=== PATIENT | female | born 2000 | race Caucasian/White ===

== ENCOUNTER 2024-12-01 22:42 | Inpatient (IN) | payer SELFPAY ==
[~2024-12-01] VITALS: Ht 162.6 cm; Wt 57.6 kg
[2024-12-01 22:44] VITALS: O2SAT 99
[2024-12-01 23:42] LABS: BASOPHILS % 0.5 % (0.0-2.0); EOSINOPHILS % 1.6 % (0.0-5.0); HEMATOCRIT. 34.4 % (36.0-48.0); HEMOGLOBIN. 11.5 g/dL (12.0-16.0); LYMPHOCYTES % 29.2 % (20.0-50.0); MEAN PLATELET VOLUME 9.3 fl (7.4-10.4); MONOCYTES % 5.5 % (2.0-8.0); NEUTROPHILS % 63.2 % (40.0-76.0); PLATELET 188 x1000/uL (130-400); RED BLOOD CELL COUNT 3.87 mill/uL (4.2-5.4); RED CELL DISTRIBUTION WIDTH 13.5 % (11.6-14.6)
[2024-12-01 23:56] LABS: CREATININE 0.8 mg/dL (0.6-1.0)
[2024-12-01 23:57] LABS: ETHANOL BLOOD < 10 mg/dL (<10); TROPONIN I HIGH SENSITIVITY < 4 ng/L (3.0-34); UREA NITROGEN BLOOD 14 mg/dL (9-23)
[2024-12-02 00:01] LABS: HCG SCREEN NEGATIVE
[2024-12-02] MEDS: LEVETIRACETAM 1000MG PREMIX 100 ML IV ONE (01:10)
[2024-12-02 01:18] LABS: *AMPHETAMINES SCREEN URINE NEGATIVE (NEGATIVE); *BARBITURATES SCREEN URINE NEGATIVE (NEGATIVE); *BENZODIAZEPINES SCREEN URINE NEGATIVE (NEGATIVE); *COCAINE SCREEN URINE NEGATIVE (NEGATIVE); CANNABINOID URINE SCREEN NEGATIVE (NEGATIVE); ECSTASY MDMA SCREEN URINE NEGATIVE (NEGATIVE); METHADONE URINE SCREEN NEGATIVE (NEGATIVE); OPIATES URINE SCREEN NEGATIVE (NEGATIVE); PHENCYCLIDINE URINE SCREEN NEGATIVE (NEGATIVE)
[2024-12-02 04:00] VITALS: BP 107/68; PULSE 67; RESP 16; TEMP 36.5848
[2024-12-02 04:22] LABS: CLARITY URINE CLEAR (CLEAR); COLOR URINE YELLOW (YELLOW); PH URINE 5.5 (4.5-8.0); SPECIFIC GRAVITY URINE 1.026 (1.005-1.030)
[2024-12-02 04:23] LABS: GLUCOSE URINE NEGATIVE (NEGATIVE); KETONES URINE TRACE (NEGATIVE); LEUKOCYTE ESTERASE URINE NEGATIVE (NEGATIVE); NITRITE URINE NEGATIVE (NEGATIVE); OCCULT BLOOD URINE 1+ (NEGATIVE); PROTEIN URINE TRACE (NEGATIVE); UROBILINOGEN URINE 0.2 E.U./dL (0.2-1.0)
[2024-12-02 04:30] LABS: SQUAMOUS EPITHELIAL CELL URINE FEW /lpf (RARE/1+)
[2024-12-02 04:32] LABS: BACTERIA URINE NONE SEEN; RBC URINE 0-2 /hpf (0-2); WBC URINE 0-2 /hpf (0-2)
[2024-12-02] MEDS ORDERED: HYDROCODONE/ACETAMINOPHEN 5/325MG TABLET PO PRN (07:15)
[2024-12-02] MEDS ORDERED: ACETAMINOPHEN 325MG TABLET PO PRN (07:15)
[2024-12-02] MEDS ORDERED: ONDANSETRON HCL 4MG/2ML INJ IV PRN (07:15)
[2024-12-02] MEDS ORDERED: CLONIDINE 0.1MG TABLET PO PRN (07:15)
[2024-12-02] MEDS ORDERED: MAGNESIUM/ALUMINUM HYDROXIDE/SIMETHICONE 30ML UDC PO PRN (07:15)
[2024-12-02] MEDS ORDERED: NALOXONE HCL 0.4MG/ML VIAL IV PRN (07:30)
[2024-12-02] MEDS ORDERED: LORAZEPAM 2MG/ML UD SYRINGE IV PRN (07:30)
[2024-12-02] MEDS: SODIUM CHLORIDE 0.9% 1,000 ML IV SCH (07:59)
[2024-12-02 08:00] VITALS: BP 104/56; PULSE 63; RESP 18; TEMP 36.4; O2SAT 100
[2024-12-02] MEDS: LEVETIRACETAM 1000MG PREMIX 100 ML IV SCH (08:38)
[2024-12-02] MEDS: PANTOPRAZOLE SODIUM 40 MG/VIAL IV SCH (08:38)
[2024-12-02] MEDS: ENOXAPARIN 40MG/0.4ML SYR SUBCUT SCH (08:39)
[2024-12-02] MEDS ORDERED: LEVETIRACETAM 1,000MG in NACL 100ML PREMIX IV SCH (09:00)
[2024-12-02 12:00] VITALS: BP 104/64; PULSE 65; RESP 18; TEMP 36.6; O2SAT 100
[2024-12-02 14:10] LABS: HEPATITIS C AB NON REACTIVE (Neg) (Negative)
[2024-12-02 16:00] VITALS: BP 107/68; PULSE 66; RESP 18; TEMP 36.6; O2SAT 100
[2024-12-02 20:00] VITALS: BP 104/62; PULSE 67; RESP 18; TEMP 36.7; O2SAT 100
[2024-12-02] MEDS: LACTULOSE 20G/30ML UDC PO PRN (20:42)
[2024-12-02] MEDS ORDERED: ZOLPIDEM TARTRATE 5MG TABLET PO PRN (21:00)
[2024-12-03] VITALS: BP 102/63; PULSE 62; RESP 16; TEMP 36.7; O2SAT 99
[2024-12-03 04:00] VITALS: BP 109/67; PULSE 66; RESP 17; TEMP 36.3; O2SAT 98
[2024-12-03 08:00] VITALS: BP 98/74; PULSE 66; RESP 18; TEMP 36.6; O2SAT 100
[2024-12-03] MEDS ORDERED: KEPP500 MT (10:26)
[2024-12-03 12:00] VITALS: BP 99/52; PULSE 67; RESP 18; TEMP 36.8; O2SAT 99
[2024-12-03 14:09] VITALS: BP 102/67; PULSE 62; RESP 16; TEMP 97.5
== END 2024-12-03 15:00 | disposition home or self-care (01) | DRG 53 ==
LOC: ER 22:42 → EDBEDREQ 12-02 02:33 → EDBEDREQTM 12-02 02:33 → EDBEDREQDT 12-02 02:33 → ENRESERV 12-02 02:41 → 5WST 12-02 04:30
PROVIDERS: ADMIT Internal Medicine; ATTEND Internal Medicine
DX: G40.909 Epilepsy, unspecified, not intractable, without status epilepticus (principal); G93.40 Encephalopathy, unspecified; G89.29 Other chronic pain; K59.00 Constipation, unspecified
CPT/HCPCS: 36415; 70551; 71045; 74176; 80048; 80305; 80320; 81003; 84484; 84703; 85025; 86705; 87340; 93005; 93970; 99285; J1650; J1953; J2470; J7030; G0480